=== PATIENT | male | born 1980 | race African-American/Black ===

== ENCOUNTER 2023-11-30 04:04 | Emergency (ER) | payer BC ==
[2023-11-30] MEDS ORDERED: KETOROLAC 30 MG/ML INJ ONE (04:47)
--- NOTE | 2023-11-30 05:21 | ER ---
Nurse's Notes [facility] Name: Ap Gibson Age: 42 yrs Sex: Male : 1980 Arrival Date: 11/30/2023 Time: 04:04 Bed DX1 Private MD: Diagnosis: Sprain of unspecified ligament of right ankle Presentation: 11/29 04:30 Chief complaint: Patient states: WAS PLAYING VOLLEYBALL AND ALL OF A SUDDEN MY RIGHT vc1 FOOT STARTED HURTING. 04:30 Coronavirus screen: Client denies travel out of the [place] in the last 14 days. At this vc1 time, the client does not indicate any symptoms associated with coronavirus-19. Ebola Screen: Patient negative for fever greater than or equal to 101.5 degrees Fahrenheit, and additional compatible Ebola Virus Disease symptoms Patient denies exposure to infectious person. Patient denies travel to an Ebola-affected area in the 21 days before illness onset. No symptoms or risks identified at this time. Initial Sepsis Screen: Does the patient meet any 2 criteria? No. Patient's initial sepsis screen is negative. Does the patient have a suspected source of infection? No. Patient's initial sepsis screen is negative. Risk Assessment: Do you want to hurt yourself or someone else? Patient reports no desire to harm self or others. Onset of symptoms was November 28, 2023. 04:30 Method Of Arrival: Ambulatory vc1 04:30 Acuity: SHERI 4 vc1 Triage Assessment: 05:26 General: Appears in no apparent distress. Behavior is calm, cooperative, appropriate vc1 for age. Pain: Complains of pain in anterior aspect of right ankle. Musculoskeletal: Reports pain in anterior aspect of right ankle. Injury Description: SPRAIN. Historical: - Allergies: 04:59 No Known Allergies; vc1 - Home Meds: 04:59 None [Active]; vc1 - PMHx: 04:59 Hypertensive disorder; vc1 - PSHx: 04:59 None; vc1 - Infectious Disease History:: Denies. - Social history:: Smoking status: Patient denies any tobacco usage or history of. - Family history:: not pertinent. Screenin:56 [facility] ED Fall Risk Assessment (Adult) History of falling in the last 3 months, vc1 including since admission No falls in past 3 months (0 pts) Confusion or Disorientation No (0 pts) Intoxicated or Sedated No (0 pts) Impaired Gait No (0 pts) Mobility Assist Device Used No (0 pt) Altered Elimination No (0 pt) Score/Fall Risk Level 0 - 2 = Low Risk Oriented to surroundings, Maintained a safe environment, Educated pt \T\ family on fall prevention, incl call for assistance when getting out of bed. Abuse screen: Denies threats or abuse. Nutritional screening: No deficits noted. Tuberculosis screening: No symptoms or risk factors identified. Vital Signs: 04:33 BP 152 / 95 RA Sitting (auto/reg); Pulse 78 RA; Resp 16 S; Temp 98.1(O); Pulse Ox 97% ty on R/A; Weight 98.88 kg (R); Height 5 ft. 10 in. (R); Pain 9/10; 04:33 Body Mass Index 31.28 (98.88 kg, 177.8 cm) ty 04:33 Pain Scale: Adult ty ED Course: 04:06 Patient arrived in ED. jj6 04:12 Alessandro Dalton MD is Attending Physician. rt 04:33 Patient has correct armband on for positive identification. Patient placed in chair. ty 04:51 Ankle Right 3 View XRAY In Process Unspecified. EDMS 04:58 Triage completed. vc1 05:26 Joan Rizvi RN is Primary Nurse. vc1 05:26 No provider procedures requiring assistance completed. Patient did not have IV access vc1 during this emergency room visit. Administered Medications: 04:53 Drug: Ketorolac IM 30 mg IM once Route: IM; Site: right deltoid; vc1 05:27 Follow up: Response: No adverse reaction; Marked relief of symptoms vc1 Medication: 04:59 VIS not applicable for this client. vc1 Outcome: 05:21 Discharge ordered by . rt 05:26 Discharged to home ambulatory, vc1 05:26 Condition: good 05:26 Discharge instructions given to patient, Instructed on discharge instructions, follow up and referral plans. Demonstrated understanding of instructions, follow-up care, Prescriptions given X 1, 05:27 Patient left the ED. vc1 Signatures: Dispatcher [employer] EDMS Aleisha Danielle jj6 Joan Rizvi RN RN vc1 Alessandro Dalton MD MD rt Moises Mancia ty
--- NOTE | 2023-11-30 05:21 | EDPHYS ---
Physician Documentation [facility] Name: Ap Gibson Age: 42 yrs Sex: Male : 1980 Arrival Date: 11/30/2023 Time: 04:04 Bed DX1 Private MD: ED Physician Alessandro Dalton HPI: 11/29 05:23 This 42 yrs old Black Male presents to ER via Ambulatory with complaints of Foot Injury.rt 05:23 Patient presents to the ED with right ankle pain since yesterday. Patient states this rt occurred in his playing volleyball. [place] a pop to the ankle reports some swelling. Pain is aching nature, nonradiating, moderate in severity, no other aggravating or elevating factors.. Historical: - Allergies: 04:59 No Known Allergies; vc1 - Home Meds: 04:59 None [Active]; vc1 - PMHx: 04:59 Hypertensive disorder; vc1 - PSHx: 04:59 None; vc1 - Infectious Disease History:: Denies. - Social history:: Smoking status: Patient denies any tobacco usage or history of. - Family history:: not pertinent. ROS: 05:23 Constitutional: Negative for fever, chills, and weight loss, Skin: Negative for injury, rt rash, and discoloration, Neuro: Negative for headache, weakness, numbness, tingling, and seizure, 05:23 MS/extremity: Positive for pain, swelling, Exam: 05:23 Constitutional: This is a well developed, well nourished patient who is awake, alert, rt and in no acute distress. Head/Face: Normocephalic, atraumatic. Skin: Warm, dry with normal turgor. Normal color with no rashes, no lesions, and no evidence of cellulitis. Neuro: Awake and alert, GCS 15, oriented to person, place, time, and situation. Cranial nerves II-XII grossly intact. Motor strength 5/5 in all extremities. Sensory grossly intact. Cerebellar exam normal. Normal gait. 05:23 Musculoskeletal/extremity: Mild swelling, tenderness overlying right lateral malleolus, pulses, motor, sensation intact, no other areas of swelling, no deformities. Vital Signs: 04:33 BP 152 / 95 RA Sitting (auto/reg); Pulse 78 RA; Resp 16 S; Temp 98.1(O); Pulse Ox 97% ty on R/A; Weight 98.88 kg (R); Height 5 ft. 10 in. (R); Pain 9; 04:33 Body Mass Index 31.28 (98.88 kg, 177.8 cm) ty 04:33 Pain Scale: Adult ty MDM: 04:29 Patient medically screened. rt 05:23 Differential diagnosis: fracture, sprain. Data reviewed: vital signs, nurses notes, rt radiologic studies. Independent interpretation of the following test(s) in the Emergency Department X-Ray: My interpretation is No fracture seen on interpretation of x-ray images. Care significantly affected by the following chronic conditions: Hypertension. Counseling: I had a detailed discussion with the patient and/or guardian regarding the historical points, exam findings, and any diagnostic results supporting the discharge/admit diagnosis, radiology results, the need for outpatient follow up, to return to the emergency department if symptoms worsen or persist or if there are any questions or concerns that arise at home. Response to treatment: the patient's symptoms have mildly improved after treatment. 11/29 04:32 Order name: Ankle Right 3 View XRAY rt Administered Medications: 04:53 Drug: Ketorolac IM 30 mg IM once Route: IM; Site: right deltoid; vc1 05:27 Follow up: Response: No adverse reaction; Marked relief of symptoms vc1 Disposition Summary: 11/30/23 05:21 Discharge Ordered Notes: Location: Home rt Problem: new rt Symptoms: have improved rt Condition: Stable rt Diagnosis - Sprain of unspecified ligament of right ankle rt Followup: rt - With: Private Physician - When: 5 - 6 days - Reason: Discharge Instructions: - Discharge Summary Sheet rt - Ankle Sprain rt Forms: - Work release form rt - Medication Reconciliation Form rt - Antibiotic Education rt - Prescription Opioid Use rt - Patient Portal Instructions rt - Leadership Thank You Letter rt Signatures: Dispatcher [employer] Joan Gresham RN RN vc1 Alessandro Dalton MD MD rt
[2023-11-30 05:42] VITALS: BP 152/95; TEMP 98.1; O2SAT 97
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
== END 2023-11-30 05:27 | disposition home or self-care (01) ==
LOC: ER 04:04
DX: S93.401A Sprain of unspecified ligament of right ankle, initial encounter (principal)
CPT/HCPCS: 96372; 99284

== ENCOUNTER 2025-01-06 17:18 | Emergency (ER) | payer BC ==
[2025-01-06 17:57] LABS: Absolute Lymphocytes (CBC) 2.3 K/uL (0.7-4.9); Hematocrit 43.5 % (39.6-49.0); Hemoglobin 14.7 g/dL (13.6-17.9); MCH 31.3 pg (27.0-35.0); MCHC 33.8 g/dL (32.0-36.0); MCV 92.5 fL (80-100); MPV 7.7 fL (7.6-11.3); Nucleated RBC Absolute Count 0.0 (0-0); Nucleated Red Blood Cells % 0.1 % (0-0); RBC Red Blood Cell Count 4.71 M/uL (4.33-5.43); White Blood Count 4.70 thou/uL (4.3-10.9)
[2025-01-06 18:12] LABS: Anion Gap 7.9 mEq/L (5.0-15.0); BUN Blood Urea Nitrogen 17.0 mg/dL (7-18); Glucose Level 97.0 mg/dL (74-106); Potassium 3.9 mEq/L (3.5-5.1)
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
[2025-01-06 19:25] VITALS: TEMP 98.5
[2025-01-06 19:27] VITALS: O2SAT 99
[2025-01-06 19:29] VITALS: BP 156/103
== END 2025-01-06 19:04 | disposition home or self-care (01) ==
LOC: ER 17:18
DX: S20.212A Contusion of left front wall of thorax, initial encounter (principal); S80.212A Abrasion, left knee, initial encounter; S80.211A Abrasion, right knee, initial encounter; V49.49XA Driver injured in collision with other motor vehicles in traffic accident, initial encounter; Z72.0 Tobacco use
CPT/HCPCS: 36415; 70450; 71250; 72125; 80048; 85025; 86850; 86900; 86901; 99284